=== PATIENT | male | born 1945 ===

== ENCOUNTER 2022-10-08 14:17 | Inpatient (IN) ==
[~2022-10-08 14:17] MED LIST: Metoprolol Tartrate 5 mg VIAL 5 ml VIAL (1 mg/ml) IV ONE; Metoprolol Tartrate 5 mg VIAL 5 ml VIAL (1 mg/ml) ONE
[2022-10-08] MEDS ORDERED: NS 0.9% 1000 ml BAG 1,000 ML IV ONE (14:38)
[2022-10-08] MEDS ORDERED: Sulfur Hexaflouride MICROSPHR 25 MG VIAL ONE (15:05)
[2022-10-08] MEDS ORDERED: Midazolam 5 mg/5 ml VIAL 1 mg/ml 5 ml VIAL (5 mg) ONE (15:13)
[2022-10-08] MEDS ORDERED: Norepinephrine 16MCG/ML BAGD5W 4,000 MCG/250 ML BAG IV ONE (15:13)
[2022-10-08] MEDS ORDERED: Heparin 2 UNITS/ML 1000 mls 3,000 ML IV ONE (15:14)
[2022-10-08] MEDS ORDERED: Heparin 1,000 UNIT/ML 10 ml (10,000 UNITS) CATHLAB/DIALYSIS ONE ×2 (15:14→16:28)
[2022-10-08] MEDS ORDERED: Lidocaine 1% MPF 5 ML VIAL ONE (15:14)
[2022-10-08] MEDS ORDERED: nitroGLYCERIN DRIP 25,000 MCG/250 ML BTL ONE (15:14)
[2022-10-08] MEDS ORDERED: Iohexol 350 (CONTRAST) 100 ML PAK IV ONE (15:14)
[2022-10-08] MEDS ORDERED: fentaNYL 100 mcg/2 ml 50 MCG/ML VIAL ONE (15:14)
[2022-10-08] MEDS ORDERED: niCARdipine 0.1MG/ML IVPREMIX 20 MG/200 ML BAG IV ONE (15:15)
[2022-10-08] MEDS: Norepinephrine 16MCG/ML BAGD5W 4,000 MCG/250 ML BAG IV SCH ×3 (15:20→23:16)
[2022-10-08] MEDS ORDERED: Eptifibatide IV (Load dose) 2 MG/ML 10 ml VIAL ONE ×2 (16:31→16:50)
[2022-10-08 16:32] LABS: ABS Lymphocytes 0.7 10^3/ul (1.0-4.8); Hematocrit 46 % (42-52); Hemoglobin 15.6 g/dL (14.0-18.0); Mean Corpuscular HGB Conc 34 g/dL (31-36); Mean Corpuscular Hemoglobin 34 pg (27-31); Mean Corpuscular Volume 99 fL (80-94); Mean Platelet Volume 7.7 fL (7.4-10.4); Nucleated Red Blood Cells % 0.1; Platelet Count 261 10^3/uL (150-450); Red Blood Count 4.64 10^6 /uL (4.18-5.48); Red Cell Distribution Width 14 % (10-15); White Blood Count 14.8 10^3/uL (3.5-10.8)
[2022-10-08 16:41] LABS: Activated Partial Thrombo Time 90.7 seconds (26.0-38.0); INR 1.22 (0.88-1.18)
[2022-10-08 17:07] LABS: High Sens Troponin Baseline > 24000 pg/mL (<20)
[2022-10-08 17:17] LABS: ALT 54 U/L (7-52); AST 240 U/L (13-39); Albumin/Globulin Ratio 1.8 (1-3); Alkaline Phosphatase 66 U/L (35-149); Anion Gap 15 mmol/L (2-11); Blood Urea Nitrogen 31 mg/dL (6-24); CO2 Carbon Dioxide 17 mmol/L (22-32); Calcium 8.8 mg/dL (8.6-10.3); Chloride 105 mmol/L (101-111); Creatinine, Serum 1.55 mg/dL (0.67-1.17); Globulin 2.2 g/dL (2-4); Glucose 237 mg/dL (70-100); Potassium 5.8 mmol/L (3.5-5.0); Sodium 137 mmol/L (135-145); Total Protein 6.2 g/dL (6.4-8.9); eGFR CKD-EPI 45.2 (>60)
[2022-10-08 18:05] LABS: POC SO2 93 %
[2022-10-08 18:05] LABS: POC SO2 34 %
[2022-10-08] MEDS ORDERED: Ondansetron 4 mg VIAL 2 MG/ML 2 ml VIAL IV PRN (18:07)
[2022-10-08] MEDS ORDERED: Furosemide 40 mg/4 ml IV VIAL IV ONE (18:42)
[2022-10-08] MEDS ORDERED: Pantoprazole VIAL 40 MG VIAL IV ONE (18:56)
[2022-10-08] MEDS: Amiodarone 360 MG IVPREMIX 360 MG/200 ML BAG IV SCH (19:09)
[2022-10-08 19:29] LABS: Hematocrit 46 % (42-52); Hemoglobin 14.9 g/dL (14.0-18.0); Mean Corpuscular HGB Conc 33 g/dL (31-36); Mean Corpuscular Hemoglobin 33 pg (27-31); Mean Corpuscular Volume 101 fL (80-94); Mean Platelet Volume 7.7 fL (7.4-10.4); Platelet Count 273 10^3/uL (150-450); Red Blood Count 4.53 10^6 /uL (4.18-5.48); Red Cell Distribution Width 14 % (10-15); White Blood Count 16.8 10^3/uL (3.5-10.8)
[2022-10-08 19:30] LABS: ABS Lymphocytes 0.9 10^3/ul (1.0-4.8); ABS Monocytes 1.6 10^3/ul (0-0.8); ABS Neutrophils 14.3 10^3/ul (1.5-7.7); Eosinophil % 0.1 %; Lymphocyte % 5.1 %
[2022-10-08] MEDS ORDERED: Heparin 5000 UNITS/ML 1 mL VIAL IV SCH (20:00)
[2022-10-08 20:07] LABS: High Sensitivity Troponin 1 Hr >24000 pg/mL (<20)
[2022-10-08 20:18] LABS: Calcium 8.9 mg/dL (8.6-10.3); Creatinine, Serum 1.51 mg/dL (0.67-1.17); eGFR CKD-EPI 46.7 (>60)
[2022-10-08 20:27] LABS: Potassium 5.5 mmol/L (3.5-5.0)
[2022-10-08] MEDS ORDERED: Pantoprazole VIAL 40 MG VIAL IV SCH (21:00)
[2022-10-08] MEDS: Pantoprazole 80 mg in NS BAG 80 MG/250 ML BAG IV SCH (21:40)
[2022-10-08] MEDS: Milrinone 200 MCG/ML PREMIXBAG 20,000 MCG/100 ML BAG IV SCH (21:45)
[2022-10-09 01:39] LABS: Hematocrit 43 % (42-52); Hemoglobin 14.2 g/dL (14.0-18.0)
[2022-10-09 02:10] LABS: Calcium 8.9 mg/dL (8.6-10.3); Creatinine, Serum 1.54 mg/dL (0.67-1.17); Potassium 4.9 mmol/L (3.5-5.0); eGFR CKD-EPI 45.6 (>60)
[2022-10-09] MEDS: Heparin DRIP 25,000 UNITS BAG 25,000 UNITS/500 ML BAG IV SCH (02:17)
[2022-10-09] MEDS ORDERED: Acetaminophen IV 1 GM/100ML 1,000 MG/100 ML BAG IV PRN (05:26)
[2022-10-09] MEDS ORDERED: Morphine 2 MG/ML SYRINGE IV PRN (05:35)
[2022-10-09] MEDS: Norepinephrine 16MCG/ML BAGD5W 4,000 MCG/250 ML BAG IV SCH (05:45)
[2022-10-09 06:35] LABS: Hematocrit 42 % (42-52); Hemoglobin 13.9 g/dL (14.0-18.0); Mean Corpuscular HGB Conc 33 g/dL (31-36); Mean Corpuscular Hemoglobin 33 pg (27-31); Mean Corpuscular Volume 99 fL (80-94); Mean Platelet Volume 7.2 fL (7.4-10.4); Platelet Count 234 10^3/uL (150-450); Red Blood Count 4.22 10^6 /uL (4.18-5.48); Red Cell Distribution Width 14 % (10-15); White Blood Count 19.2 10^3/uL (3.5-10.8)
[2022-10-09] MEDS: Amiodarone 360 MG IVPREMIX 360 MG/200 ML BAG IV SCH (06:55)
[2022-10-09] MEDS ORDERED: Furosemide 40 mg/4 ml IV VIAL IV SLOW PU ONE (06:58)
[2022-10-09] MEDS: Pantoprazole 80 mg in NS BAG 80 MG/250 ML BAG IV SCH (07:19)
[2022-10-09 07:20] LABS: Albumin/Globulin Ratio 2.1 (1-3); Calcium 8.9 mg/dL (8.6-10.3); Creatinine, Serum 1.47 mg/dL (0.67-1.17); Globulin 1.9 g/dL (2-4); HDL Cholesterol 48.8 mg/dL; Potassium 4.9 mmol/L (3.5-5.0); Total Bilirubin 0.4 mg/dL (0.2-1.0); Total Protein 5.9 g/dL (6.4-8.9); eGFR CKD-EPI 48.2 (>60)
[2022-10-09 07:32] LABS: ABS Basophils 0.1 10^3/ul (0-0.2); ABS Lymphocytes 1.5 10^3/ul (1.0-4.8); ABS Monocytes 2.4 10^3/ul (0-0.8); ABS Neutrophils 15.2 10^3/ul (1.5-7.7); Lymphocyte % 7.6 %; Nucleated Red Blood Cells % 0.1
[2022-10-09] MEDS ORDERED: nitroGLYCERIN DRIP 25,000 MCG/250 ML BTL IV SCH (08:00)
[2022-10-09] MEDS ORDERED: Pantoprazole VIAL 40 MG VIAL IV SCH ×3 (09:00→21:00)
[2022-10-09 09:05] LABS: Urine Appearance Clear; Urine Bilirubin Negative (Negative); Urine Blood 2+ (Negative); Urine Color Yellow; Urine Glucose Negative (Negative); Urine Ketones Negative (Negative); Urine Nitrite Negative (Negative); Urine Protein Negative (Negative); Urine Urobilinogen Negative (Negative)
[2022-10-09] MEDS ORDERED: Midazolam 5 mg/5 ml VIAL 1 mg/ml 5 ml VIAL (5 mg) IV SLOW PU ONE (09:32)
[2022-10-09] MEDS ORDERED: fentaNYL 100 mcg/2 ml 50 MCG/ML VIAL IV SLOW PU ONE (09:32)
[2022-10-09 09:33] LABS: Urine Bacteria Absent (Absent); Urine Red Blood Cell 2+(6-10/hpf) (Absent); Urine White Blood Cell 2+(11-20/hpf) (Absent)
[2022-10-09] MEDS: Milrinone 200 MCG/ML PREMIXBAG 20,000 MCG/100 ML BAG IV SCH ×5 (10:52→20:55)
[2022-10-09] MEDS: Amiodarone 400 mg TAB PO SCH ×3 (12:17→20:54)
[2022-10-09 13:23] LABS: Hematocrit 37 % (42-52); Hemoglobin 12.2 g/dL (14.0-18.0); Mean Corpuscular HGB Conc 33 g/dL (31-36); Mean Corpuscular Hemoglobin 32 pg (27-31); Mean Corpuscular Volume 99 fL (80-94); Mean Platelet Volume 7.4 fL (7.4-10.4); Platelet Count 164 10^3/uL (150-450); Red Blood Count 3.78 10^6 /uL (4.18-5.48); Red Cell Distribution Width 14 % (10-15); White Blood Count 16.8 10^3/uL (3.5-10.8)
[2022-10-09 13:27] LABS: ABS Lymphocytes 1.1 10^3/ul (1.0-4.8); ABS Monocytes 1.8 10^3/ul (0-0.8); ABS Neutrophils 13.8 10^3/ul (1.5-7.7); Lymphocyte % 6.7 %
[2022-10-09] MEDS ORDERED: NS 0.9% 250 ml 250 ML IV ONE (13:32)
[2022-10-09] MEDS ORDERED: Milrinone 200 MCG/ML PREMIXBAG 20,000 MCG/100 ML BAG IV SCH (19:00)
[2022-10-09] MEDS ORDERED: MILRINONE IV ONE (20:52)
[2022-10-10] MEDS: Heparin DRIP 25,000 UNITS BAG 25,000 UNITS/500 ML BAG IV SCH (00:29)
[2022-10-10 04:29] LABS: ABS Lymphocytes 1.1 10^3/ul (1.0-4.8); ABS Monocytes 1.3 10^3/ul (0-0.8); Eosinophil % 0.4 %; Hematocrit 35 % (42-52); Hemoglobin 11.7 g/dL (14.0-18.0); Lymphocyte % 9.9 %; Mean Corpuscular HGB Conc 33 g/dL (31-36); Mean Corpuscular Hemoglobin 32 pg (27-31); Mean Corpuscular Volume 98 fL (80-94); Mean Platelet Volume 7.6 fL (7.4-10.4); Platelet Count 136 10^3/uL (150-450); Red Blood Count 3.62 10^6 /uL (4.18-5.48); Red Cell Distribution Width 14 % (10-15); White Blood Count 11.5 10^3/uL (3.5-10.8)
[2022-10-10] MEDS ORDERED: Magnesium Sulfate 2 gm BAG 2 GM/50 ML ONE (05:30)
[2022-10-10] MEDS ORDERED: Amiodarone IV 150 mg/3 ml VIAL ONE (05:30)
[2022-10-10] MEDS ORDERED: EPINEPHrine SYR 0.1MG/ML 10 ml SYRINGE ONE (05:30)
[2022-10-10 05:41] LABS: TSH Ultra Thyroid Stim Horm 1.49 mcIU/mL (0.34-5.60)
[2022-10-10 05:42] LABS: Albumin 3.6 g/dL (3.2-5.2); Calcium 8.6 mg/dL (8.6-10.3); Magnesium 1.8 mg/dL (1.9-2.7); Potassium 4.4 mmol/L (3.5-5.0); Total Bilirubin 0.7 mg/dL (0.2-1.0)
[2022-10-10 05:43] LABS: Albumin/Globulin Ratio 1.9 (1-3); Creatinine, Serum 1.22 mg/dL (0.67-1.17); Globulin 1.9 g/dL (2-4); Total Protein 5.5 g/dL (6.4-8.9); eGFR CKD-EPI 60.3 (>60)
[2022-10-10] MEDS ORDERED: Amiodarone 150 mg IVPREMIX 150 MG/100 ML BAG IV ONE (05:50)
[2022-10-10] MEDS ORDERED: Rocuronium 50 mg VIAL 10 mg/ml 5 ml VIAL (50 mg) ONE (06:01)
[2022-10-10] MEDS ORDERED: Succinylcholine 200 mg VIAL 20 mg/ml 10 ml VIAL (200 mg) ONE (06:01)
[2022-10-10] MEDS ORDERED: Propofol 10 mg/ml 100 ML BTL 1,000 MG/100 ML BTL ONE (06:06)
[2022-10-10] MEDS ORDERED: Magnesium Sulfate 2 gm BAG 2 GM/50 ML BAG ONE (06:08)
[2022-10-10 07:21] VITALS: BP 63/38
== END 2022-10-10 06:27 | disposition expired | DRG 229 ==
LOC: ICU 14:17
PROVIDERS: ADMIT Internal Medicine; ATTEND Internal Medicine